=== PATIENT | female | born 1995 | race Caucasian/White ===

== ENCOUNTER 2018-06-10 18:01 | Emergency (ER) | payer OTHER, SELFPAY ==
[2018-06-10 18:02] VITALS: BP 120/63; PULSE 109; RESP 18; TEMP 36.3; O2SAT 96; BMI 19.8
[2018-06-10] MEDS: Morphine 2 MG/ML Syringe IV ×2 (18:46→21:01)
[2018-06-10] MEDS: Ondansetron 4 MG/2 ML Vial IV (18:46)
[2018-06-10] MEDS: 0.9% Normal Saline 1,000 ML 150 ML IV (18:47)
[2018-06-10 18:49] LABS: Mucous, Urine 0 SEEN /hpf (<or=2+); Red Blood Cells-Urine 0 SEEN /hpf (0-5)
[2018-06-10 18:59] LABS: Color, Urine Yellow (Yellow); Glucose, Dipstick Normal (Normal); Ketone-Dipstick Negative (Negative); Leukocyte Esterase-Dipstick 100 /ul (Negative); Nitrite-Dipstick Positive (Negative); Occult Blood-Urine 25 /ul (Negative); Protein-Dipstick 30 mg/dl (Negative); Urine Bilirubin Dipstick Negative (Negative); Urine Clarity Cloudy (Clear); Urine Urobilinogen Normal (Normal)
[2018-06-10 19:02] LABS: Absolute Lymphocyte Count 1.01 X10^3/ul (0.83-4.51); Absolute Neutrophil Count 2.6 X10^3/uL (2.0-7.7); Eosinophil# 0.08 X10^3/uL; Hematocrit 42.9 % (37-47); Hemoglobin 14.8 g/dl (12.0-15.0); Lymphocyte # 1.01 X10^3/ul (4.0); Lymphocyte % 24.9 % (19-41); Mean Corp Hgb Conc 34.5 g/gl (32-36); Mean Corpuscular Volume 89.9 fL (81-99); Mean Platelet Vol. 10.7 fl (6.2-12.0); Monocyte% 9.9 % (0-10); Neutrophil # 2.56 X10^3/uL (2.7-7.7); Neutrophil % 63.2 % (47-70); Platelet Count 147 K/mm3 (150-450); RBC Distribution Width CV 12.7 % (11.6-14.6); RBC Distribution Width SD 41.7 fl (35.1-43.9); Red Blood Count 4.77 M/mm3 (4.2-5.4); White Blood Count 4.1 K/mm3 (4.4-11.0)
[2018-06-10 19:05] LABS: POSITIVE COUNT NO; POSITIVE DIFFERENTIAL NO; POSITIVE MORPHOLOGY NO
[2018-06-10 19:07] LABS: AST(SGOT) 20 U/L (15-37); Alanine Aminotransfer ALT/SGPT 18 U/L (13-56); Albumin, Serum 3.7 g/dL (3.2-5.0); Alkaline Phosphatase 43 U/L (45-117); Anion Gap 9 (5-15); BUN 13 mg/dL (7-18); BUN/Creat Ratio 15.6 RATIO (10-20); Bilirubin, Direct 0.15 mg/dL (0.00-0.30); Calcium,Total 8.4 mg/dL (8.5-10.1); Chloride 105 mmol/L (98-107); Creatinine, Serum 0.83 mg/dL (0.55-1.02); EST Glomerular Filtration Rate 91 mL/min (>60); Est Glom Filt Rate - Afr Amer 110 mL/min (>60); Estimated Creatinine Clearance 79.94 ml/min; Globulin 3.6 g/dL (2.2-4.2); Glucose 90 mg/dL (74-106); Potassium 3.8 mmol/L (3.5-5.1); Protein, Total 7.3 g/dL (6.4-8.2); Sodium Level 139 mmol/L (136-145)
[2018-06-10 19:11] LABS: Bacteria 4+ /hpf (None Seen); Squamous Epithelial Cells - UA 50-100 SEEN /hpf (5-10); White Blood Cells 10-25 SEEN /hpf (0-5)
--- NOTE | 2018-06-10 19:56 | CT_ITS ---
STUDY: CT ABDOMEN AND PELVIS WITHOUT CONTRAST REASON FOR EXAM: Female, 22 years old. Flank pain. History of renal stones. RADIATION DOSAGE (If Supplied By Facility): CTDIvol = ( 6.19 ) mGy, DLP = ( 278.32 ) mGycm TECHNIQUE: Transaxial images were obtained from the dome of the diaphragm to the symphysis pubis without oral contrast, and without intravenous contrast. Sagittal and coronal images were reconstructed. Individualized dose optimization techniques were used for this CT. COMPARISON: None. FINDINGS: The visualized lung bases are unremarkable. The visualized portions of the heart are within normal limits. Normal liver. Normal gallbladder and extrahepatic biliary system. Normal spleen. Normal pancreas. Normal bilateral adrenal glands. Normal right kidney without hydronephrosis or stones. Normal left kidney without hydronephrosis or stones. Food filled stomach. Normal small intestine. Normal colon. The appendix is visualized and appears normal. Shotty mesenteric lymph nodes. Normal abdominal aorta. Normal inferior vena cava. Normal retroperitoneum. Normal urinary bladder. Negative for pelvic mass or free fluid of the pelvis. Normal abdominal wall. Mild levoscoliosis. CT/Abdomen/Pelvis without Cont IMPRESSION: No acute abdominal or pelvic findings. Specifically, normal size of the kidneys bilaterally without hydronephrosis, renal, ureteral or bladder stones. Nondistended urinary bladder. Negative for pelvic mass. Negative for acute bowel related findings. Negative for evidence of bowel obstruction, perforation or inflammatory bowel changes. A normal appendix is identified. Shotty mesenteric lymph nodes. Electronically Signed: Yuli Crowe MD at 20:40 EST , Service support ,
[2018-06-10 20:02] LABS: Pregnancy, Serum, hCG Quali. NEGATIVE Negative (0-9 Nonpreg)
[2018-06-10 20:18] VITALS: BP 103/68; PULSE 89; RESP 16; O2SAT 97
[2018-06-10 20:55] LABS: Mucous, Urine 0 SEEN /hpf (<or=2+)
[2018-06-10] MEDS: Ketorolac 15 MG/ML Vial IV (21:01)
[2018-06-10 21:02] LABS: Color, Urine Yellow (Yellow); Glucose, Dipstick Normal (Normal); Ketone-Dipstick 5 mg/dl (Negative); Leukocyte Esterase-Dipstick 25 /ul (Negative); Nitrite-Dipstick Positive (Negative); Occult Blood-Urine 10 /ul (Negative); Protein-Dipstick 15 mg/dl (Negative); Urine Bilirubin Dipstick Negative (Negative); Urine Clarity Sl. Cloudy (Clear); Urine Urobilinogen Normal (Normal)
[2018-06-10 21:09] LABS: Amorphous Sediment 1+ URATE; Bacteria 2+ /hpf (None Seen); Red Blood Cells-Urine 0-5 SEEN /hpf (0-5); Squamous Epithelial Cells - UA 0-5 SEEN /hpf (5-10); White Blood Cells 5-10 SEEN /hpf (0-5)
[2018-06-10 22:00] VITALS: BP 96/70; PULSE 88; RESP 16; O2SAT 96
--- NOTE | 2018-06-10 22:34 | ED.VISSUMM ---
- ER Visit Summary Date of Service: 06/10/18 Chief Complaint: Right flank pain History of Present Illness: The patient is a 22 F with right flank pain that started today. She states it feels better to have her knees bent and pulled up to her chest as opposed to standing upright or laying down flat. She denies urinary symptoms. She has had some mild nausea. No fever or chills. She reportedly had a history of kidney stones when she was in fifth grade. Physical Examination: Vital signs remarkable only for heart rate of 109. Patient sitting upright in bed. She is in no acute distress and is nontoxic appearing. Head neck examination is otherwise normal. Heart is regular rate and rhythm. Lung sounds are clear. Abdomen is soft with tenderness in the right lower quadrant. No guarding or rebound. There is no true CVA tenderness, but she does have mild right lower lumbar paraspinal tenderness. Test Results: CBC was normal white count. Platelet count is 147,000. Chemistry studies and LFTs are normal. Initial urinalysis is positive for nitrites with 10-25 white cells, however 50-100 epithelial cells and 4+ bacteria noted. Repeat urine with attempt at better sample shows continued positive nitrites with 5-10 white cells and 2+ bacteria. 0-[address] flank is obtained that shows no acute findings. Emergency Department Course and Treatment: Patient was initially given small dose of morphine, Zofran, and IV fluids. After returning from CT she had another small dose of morphine along with Toradol. At this time patient is resting comfortably. She will be treated with Bactrim, first dose given here. Treatment Plan: [] Disposition: Discharge Impression: Cystitis This note was generated with [employer] dictation software. It may contain incorrect words, spelling, and punctuation that were not noted in review of the chart prior to signing ED Disposition - Plan for ED Patient: Chief Complaint: Flank Pain Referrals: Lubna Diehl MD [Primary Care Provider] -
--- NOTE | 2018-06-10 22:36 | ED.DEP ---
ED Disposition - Plan for ED Patient: Disposition: Home or Assisted Living Chief Complaint: Flank Pain Instructions: ED UTI Cystitis Female Prescriptions: Smz/Tmp Ds [Bactrim Ds] 1 tablet PO BID #6 tablet Referrals: Lubna Diehl MD [Primary Care Provider] - 1 Week
[2018-06-10 22:41] VITALS: BP 103/74; PULSE 71; RESP 17; O2SAT 97
[2018-06-10] MEDS: Smz/Tmp Ds Tablet 1 TABLET PO (22:45)
== END 2018-06-10 22:45 | disposition home or self-care (01) ==
PROVIDERS: Emergency Provider Emergency Medicine; Family Provider Pediatrics; PCP Pediatrics
DX: N30.90 Cystitis, unspecified without hematuria (principal); Z87.442 Personal history of urinary calculi
CPT/HCPCS: 74176; 80048; 80076; 81001; 84703; 85025; 96361; 96374; 96375; 96376; 99284; J7030; A4216; J2405

== ENCOUNTER → 2019-07-27 10:03 | Outpatient (CLI) | payer OTHER, SELFPAY ==
[2019-07-27 10:13] VITALS: BP 93/56; PULSE 78; RESP 16; TEMP 37; O2SAT 98; BMI 20.7
== END ==
PROVIDERS: PCP Pediatrics
DX: N15.1 Renal and perinephric abscess (principal)
CPT/HCPCS: 96365; J7050; A4216; J0696

== ENCOUNTER → 2019-07-28 10:44 | Outpatient (CLI) | payer OTHER, SELFPAY ==
[2019-07-27 10:13] VITALS: BMI 20.7
[2019-07-28 10:56] VITALS: BP 102/58; PULSE 8; RESP 16; TEMP 37.1; O2SAT 99; BMI 20.7
[2019-07-28 12:08] VITALS: BP 97/52; PULSE 61; RESP 18
== END ==
PROVIDERS: PCP Pediatrics
DX: N15.1 Renal and perinephric abscess (principal)
CPT/HCPCS: 96365; A4216; J0696

== ENCOUNTER 2019-07-29 10:59 | Outpatient (CLI) | payer OTHER, SELFPAY ==
[2019-07-28 10:56] VITALS: BMI 20.7
[2019-07-29] MEDS: 0.9% Saline Lock 10 ML Syringe IV ×2 (11:05→12:05)
[2019-07-29 11:27] VITALS: BP 97/64; PULSE 67; RESP 16; TEMP 36.8; O2SAT 97
== END 2019-07-29 12:10 | disposition home or self-care (01) ==
LOC: MEDOUTP 11:00 → MS3 11:02
PROVIDERS: PCP Pediatrics
DX: N15.1 Renal and perinephric abscess (principal)
CPT/HCPCS: 96365; J7050; A4216; J0696

== ENCOUNTER 2019-07-30 11:07 | Outpatient (CLI) | payer OTHER, SELFPAY ==
[2019-07-28 10:56] VITALS: BMI 20.7
[2019-07-30] MEDS: 0.9% Saline Lock 10 ML Syringe IV ×2 (12:10→13:17)
== END 2019-07-30 13:20 | disposition home or self-care (01) ==
LOC: MEDOUTP 11:08 → MS3 11:09
PROVIDERS: PCP Pediatrics
DX: N15.1 Renal and perinephric abscess (principal)
CPT/HCPCS: 96365; A4216; J0696

== ENCOUNTER → 2019-07-31 15:37 | Outpatient (CLI) | payer OTHER, SELFPAY ==
[2019-07-27 10:13] VITALS: BMI 20.7
[2019-07-28 10:56] VITALS: BMI 20.7
[2019-07-31 16:11] VITALS: BP 113/59; PULSE 79; RESP 16; TEMP 36.7; O2SAT 98; BMI 20.7
[2019-07-31 16:43] LABS: Absolute Lymphocyte Count 1.79 X10^3/uL (0.83-4.51); Absolute Neutrophil Count 3.8 X10^3/uL (2.0-7.7); Basophil# 0.03 X10^3/uL; Basophil% 0.5 % (0-1); Eosinophil# 0.13 X10^3/uL; Eosinophils% 2.1 % (0-5); Hemoglobin 13.3 g/dL (12.0-15.0); Lymphocyte # 1.79 X10^3/ul (4.0); Lymphocyte % 29.1 % (19-41); Mean Corp Hgb Conc 34.1 g/dL (32-36); Mean Corpuscular Hgb 30.9 pg (27.0-32.0); Mean Corpuscular Volume 90.7 fL (81-99); Mean Platelet Vol. 9.7 fl (6.2-12.0); Monocyte# 0.37 X10^3/uL; NRBC Flagged by Analyzer 0 % (0-5); Neutrophil # 3.81 X10^3/uL (2.7-7.7); Platelet Count 338 K/mm3 (150-450); RBC Distribution Width CV 12.3 % (11.6-14.6); RBC Distribution Width SD 40.6 fl (35.1-43.9); White Blood Count 6.2 K/mm3 (4.4-11.0)
[2019-07-31 16:55] LABS: Alanine Aminotransfer ALT/SGPT 43 U/L (13-56); Creatinine, Serum 0.92 mg/dL (0.55-1.02); EST Glomerular Filtration Rate 80 mL/min (>60); Est Glom Filt Rate - Afr Amer 97 mL/min (>60)
== END ==
PROVIDERS: PCP Pediatrics
DX: N15.1 Renal and perinephric abscess (principal)
CPT/HCPCS: 96365; 82565; 84460; 85025; J7040; A4216; J0696

== ENCOUNTER → 2019-08-01 13:53 | Outpatient (CLI) | payer OTHER, SELFPAY ==
[2019-07-27 10:13] VITALS: BMI 20.7
[2019-07-31 16:11] VITALS: BMI 20.7
[2019-08-01 14:06] VITALS: BP 95/64; PULSE 66; RESP 18; TEMP 36.9; O2SAT 97; BMI 20.7
== END ==
PROVIDERS: PCP Pediatrics
DX: N15.1 Renal and perinephric abscess (principal)
CPT/HCPCS: 96365; J7050; A4216; J0696

== ENCOUNTER → 2019-08-02 13:55 | Outpatient (CLI) | payer OTHER, SELFPAY ==
[2019-07-27 10:13] VITALS: BMI 20.7
[2019-08-01 14:06] VITALS: BMI 20.7
[2019-08-02 14:15] VITALS: BP 104/69; PULSE 69; RESP 18; TEMP 36.6; O2SAT 98; BMI 20.7
== END ==
PROVIDERS: PCP Pediatrics
DX: N15.1 Renal and perinephric abscess (principal)
CPT/HCPCS: 96365; J7050; A4216; J0696

== ENCOUNTER → 2019-08-03 13:55 | Outpatient (CLI) | payer OTHER, SELFPAY ==
[2019-07-27 10:13] VITALS: BMI 20.7
[2019-08-02 14:15] VITALS: BMI 20.7
[2019-08-03 14:08] VITALS: BP 109/69; PULSE 89; RESP 16; TEMP 36.3; O2SAT 98; BMI 20.7
== END ==
PROVIDERS: PCP Pediatrics
DX: N15.1 Renal and perinephric abscess (principal)
CPT/HCPCS: 96365; J7050; A4216; J0696

== ENCOUNTER → 2019-08-04 13:59 | Outpatient (CLI) | payer OTHER, SELFPAY ==
[2019-07-27 10:13] VITALS: BMI 20.7
[2019-08-03 14:08] VITALS: BMI 20.7
[2019-08-04 14:12] VITALS: BP 102/64; PULSE 78; RESP 16; TEMP 37.2; O2SAT 97; BMI 20.7
== END ==
PROVIDERS: PCP Pediatrics
DX: N15.1 Renal and perinephric abscess (principal)
CPT/HCPCS: 96365; A4216; J0696

== ENCOUNTER 2019-08-05 11:05 | Outpatient (CLI) | payer OTHER, SELFPAY ==
[2019-07-27 10:13] VITALS: BMI 20.7
[2019-08-04 14:12] VITALS: BMI 20.7
[2019-08-05] MEDS: 0.9% Saline Lock 10 ML Syringe IV ×2 (11:20→12:11)
[2019-08-05 11:26] VITALS: BP 107/56; PULSE 77; RESP 18; TEMP 36.7; O2SAT 99
== END 2019-08-05 12:14 | disposition home or self-care (01) ==
LOC: MEDOUTP 11:08 → MS3 11:34
PROVIDERS: PCP Pediatrics
DX: N15.1 Renal and perinephric abscess (principal)
CPT/HCPCS: 96365; J7050; A4216; J0696

== ENCOUNTER 2019-08-06 10:04 | Outpatient (CLI) | payer OTHER, SELFPAY ==
[2019-07-27 10:13] VITALS: BMI 20.7
[2019-08-04 14:12] VITALS: BMI 20.7
[2019-08-06] MEDS: Ceftriaxone 2 GM in 0.9% NS 50 ML Minibag x1 IV (11:13)
[2019-08-06] MEDS: 0.9% Saline Lock 10 ML Syringe IV ×2 (11:13→12:04)
[2019-08-06 11:25] VITALS: BP 104/57; PULSE 76; RESP 18; TEMP 36.6; O2SAT 99
== END 2019-08-06 12:05 | disposition home or self-care (01) ==
LOC: MEDOUTP 10:04 → MS3 10:06
PROVIDERS: PCP Pediatrics
DX: N15.1 Renal and perinephric abscess (principal)
CPT/HCPCS: 96365; J7050; A4216; J0696

== ENCOUNTER → 2019-08-07 10:31 | Outpatient (CLI) | payer OTHER, SELFPAY ==
[2019-07-27 10:13] VITALS: BMI 20.7
[2019-08-04 14:12] VITALS: BMI 20.7
[2019-08-07 10:40] VITALS: BP 116/56; PULSE 69; RESP 16; O2SAT 100; BMI 20.7
[2019-08-07 10:54] LABS: Absolute Lymphocyte Count 1.54 X10^3/uL (0.83-4.51); Absolute Neutrophil Count 1.5 X10^3/uL (2.0-7.7); Basophil# 0.05 X10^3/uL; Basophil% 1.5 % (0-1); Eosinophils% 2.9 % (0-5); Hematocrit 39.2 % (37-47); Hemoglobin 13.2 g/dL (12.0-15.0); Lymphocyte # 1.54 X10^3/ul (4.0); Lymphocyte % 45.3 % (19-41); Mean Corp Hgb Conc 33.7 g/dL (32-36); Mean Corpuscular Hgb 30.7 pg (27.0-32.0); Mean Corpuscular Volume 91.2 fL (81-99); Mean Platelet Vol. 10.2 fl (6.2-12.0); Monocyte# 0.25 X10^3/uL; Monocyte% 7.4 % (0-10); NRBC Flagged by Analyzer 0 % (0-5); Neutrophil # 1.46 X10^3/uL (2.7-7.7); Neutrophil % 42.9 % (47-70); Platelet Count 222 K/mm3 (150-450); RBC Distribution Width CV 12.5 % (11.6-14.6); RBC Distribution Width SD 41.3 fl (35.1-43.9); White Blood Count 3.4 K/mm3 (4.4-11.0)
[2019-08-07 11:08] LABS: Alanine Aminotransfer ALT/SGPT 20 U/L (13-56); Creatinine, Serum 0.88 mg/dL (0.55-1.02); EST Glomerular Filtration Rate 84 mL/min (>60); Est Glom Filt Rate - Afr Amer 102 mL/min (>60); Estimated Creatinine Clearance 75.03 ml/min
== END ==
PROVIDERS: PCP Pediatrics
DX: N15.1 Renal and perinephric abscess (principal)
CPT/HCPCS: 96365; 36415; 82565; 84460; 85025; J7050; A4216; J0696